=== PATIENT | female | born 1980 | race Caucasian/White ===

== ENCOUNTER 2019-04-06 14:14 | Emergency (ER) | payer MEDICAID ==
[~2019-04-06] VITALS: Ht 177 cm; Wt 121.0 kg
[2019-04-06] MEDS ORDERED: NS IV 1000 ML 1,000 ML IV SCH (15:00)
[2019-04-06 15:01] LABS: BASOPHILS % (AUTO) 0 % (0-10); EOSINOPHILS % (AUTO) 0 % (0-10); HEMATOCRIT 45 % (35-52); HEMOGLOBIN 15.1 G/DL (11.5-16.0); LYMPHOCYTES # (AUTO) 1.8 X 10^3 (1.0-4.0); LYMPHOCYTES % (AUTO) 18 % (12-44); MEAN CORPUSCULAR HEMOGLOBIN 29 PG (25-34); MEAN CORPUSCULAR HGB CONC 33 G/DL (32-36); MEAN CORPUSCULAR VOLUME 85 FL (80-99); MEAN PLATELET VOLUME 10.6 FL (7.4-10.4); MONOCYTES # (AUTO) 0.6 X 10^3 (0.0-1.0); MONOCYTES % (AUTO) 6 % (0-12); NEUTROPHILS # (AUTO) 7.7 X 10^3 (1.8-7.8); NEUTROPHILS % (AUTO) 76 % (42-75); PLATELET COUNT 304 10^3/uL (130-400); RED CELL DISTRIBUTION WIDTH 14.3 % (10.0-14.5); WHITE BLOOD COUNT 10.2 10^3/uL (4.3-11.0)
[2019-04-06 15:16] LABS: ALANINE AMINOTRANSFERASE 13 U/L (0-55); ALBUMIN 4.5 GM/DL (3.2-4.5); ALKALINE PHOSPHATASE 78 U/L (40-136); BUN/CREATININE RATIO 12; CALCIUM 9.5 MG/DL (8.5-10.1); CARBON DIOXIDE 19 MMOL/L (21-32); CHLORIDE 106 MMOL/L (98-107); CREATININE SERUM 0.74 MG/DL (0.60-1.30); GFR ESTIMATED > 60; GLUCOSE 94 MG/DL (70-105); POTASSIUM 3.5 MMOL/L (3.6-5.0); SODIUM 139 MMOL/L (135-145); TOTAL PROTEIN 7.9 GM/DL (6.4-8.2)
--- NOTE | 2019-04-06 15:33 | ED GU-Female ---
General Chief Complaint: ALUMINIZER Stated Complaint: VOMITTING, APPROX 11 WEEKS Nursing Triage Note: PT STATES HAS BEEN VOMITING FOR APPROX 3 WEEKS AND IS 11WEEKS G-10 P-9 AB-0 Nursing Sepsis Screen: No Definite Risk Source: patient Exam Limitations: no limitations History of Present Illness Date Seen by Provider: Apr 06, 2019 Time Seen by Provider: 15:32 Initial Comments To ER with reports of a nausea and vomiting for about 3 weeks pretty persistently. She is 11 weeks G 10 P 90 B0. History of nausea and vomiting with previous pregnancies. Not currently on any medications for it. At the very moment she is not nauseated. She denies any lower abdominal pain cramping or vaginal bleeding. Timing/Duration: just prior to arrival Severity/Quality: moderate Radiation: none Activities at Onset: none Prior Genitourinary Problems: none Associated Symptoms: nausea/vomiting Allergies and Home Medications Allergies Coded Allergies: No Known Drug Allergies (Unverified , 04/03/16) Home Medications No Active Prescriptions or Reported Meds Patient Home Medication List Home Medication List Reviewed: Yes Review of Systems Review of Systems Constitutional: see HPI EENTM: see HPI Respiratory: no symptoms reported Cardiovascular: no symptoms reported Gastrointestinal: nausea Genitourinary: no symptoms reported Expected Date of Delivery: October 30, 2019 Musculoskeletal: no symptoms reported Skin: no symptoms reported Psychiatric/Neurological: No Symptoms Reported Endocrine: No Symptoms Reported Hematologic/Lymphatic: No Symptoms Reported Past Otndtjt-Futyvy-Rbihjj Hx Patient Social History Recent Foreign Travel: No Contact w/Someone Who Travel: No Recent Infectious Disease Expo: No Recent Hopitalizations: No Physical Abuse: No Sexual Abuse: No Mistreated: No Fear: No Immunizations Up To Date Tetanus Booster (TDap): Less than 5yrs Seasonal Allergies Seasonal Allergies: No Past Medical History Surgeries: No Respiratory: No Cardiac: No Neurological: No : Yes Expected Date of Delivery: October 30, 2019 Hx : 10 Hx Para: 9 Hx Total # of Abortions (Sp): 0 Reproductive Disorders: No Sexually Transmitted Disease: No HIV/AIDS: No Gastrointestinal: No Musculoskeletal: No Endocrine: No Cancer: No Psychosocial: No Integumentary: No Blood Disorders: No Adverse Reaction/Blood Tranf: No Physical Exam Vital Signs Vital Signs - First Documented 04/06/19 14:20 Temp 36.8 Pulse 106 Resp 18 B/P (MAP) 120/85 (97) Pulse Ox 99 Capillary Refill : Less Than 3 Seconds Height, Weight, BMI Height: 5'10" Weight: 205lbs. oz. 92.012756im; 38.00 BMI Method:Stated General Appearance: WD/WN, no apparent distress HEENT: PERRL/EOMI, normal ENT inspection Neck: non-tender, full range of motion Respiratory: no respiratory distress, no accessory muscle use Gastrointestinal: normal bowel sounds, non tender, soft Extremities: normal range of motion, non-tender Neurologic/Psychiatric: alert, normal mood/affect, oriented x 3 Skin: normal color, warm/dry Progress/Results/Core Measures Suspected Sepsis Recent Fever Within 48 Hours: No Infection Criteria Present: None New/Unexplained Altered Menta: No Sepsis Screen: No Definite Risk SIRS Temperature: Pulse: 106 Respiratory Rate: 18 Laboratory Tests 04/06/19 14:53: White Blood Count 10.2 Blood Pressure 120 /85 Mean: 97 Laboratory Tests 04/06/19 14:53: Creatinine 0.74, Platelet Count 304, Total Bilirubin 1.0 Results/Orders Lab Results Laboratory Tests Test 04/06/19 14:53 04/06/19 14:54 Range/Units White Blood Count 10.2 4.3-11.0 10^3/uL Red Blood Count 5.29 4.35-5.85 10^6/uL Hemoglobin 15.1 11.5-16.0 G/DL Hematocrit 45 35-52 % Mean Corpuscular Volume 85 80-99 FL Mean Corpuscular Hemoglobin 29 25-34 PG Mean Corpuscular Hemoglobin Concent 33 32-36 G/DL Red Cell Distribution Width 14.3 10.0-14.5 % Platelet Count 304 130-400 10^3/uL Mean Platelet Volume 10.6 H 7.4-10.4 FL Neutrophils (%) (Auto) 76 H 42-75 % Lymphocytes (%) (Auto) 18 12-44 % Monocytes (%) (Auto) 6 0-12 % Eosinophils (%) (Auto) 0 0-10 % Basophils (%) (Auto) 0 0-10 % Neutrophils # (Auto) 7.7 1.8-7.8 X 10^3 Lymphocytes # (Auto) 1.8 1.0-4.0 X 10^3 Monocytes # (Auto) 0.6 0.0-1.0 X 10^3 Eosinophils # (Auto) 0.0 0.0-0.3 10^3/uL Basophils # (Auto) 0.0 0.0-0.1 10^3/uL Sodium Level 139 135-145 MMOL/L Potassium Level 3.5 L 3.6-5.0 MMOL/L Chloride Level 106 98-107 MMOL/L Carbon Dioxide Level 19 L 21-32 MMOL/L Anion Gap 14 5-14 MMOL/L Blood Urea Nitrogen 9 7-18 MG/DL Creatinine 0.74 0.60-1.30 MG/DL Estimat Glomerular Filtration Rate > 60 BUN/Creatinine Ratio 12 Glucose Level 94 70-105 MG/DL Calcium Level 9.5 8.5-10.1 MG/DL Corrected Calcium 9.1 8.5-10.1 MG/DL Total Bilirubin 1.0 0.1-1.0 MG/DL Aspartate Amino Transf (AST/SGOT) 13 5-34 U/L Alanine Aminotransferase (ALT/SGPT) 13 0-55 U/L Alkaline Phosphatase 78 40-136 U/L Total Protein 7.9 6.4-8.2 GM/DL Albumin 4.5 3.2-4.5 GM/DL Human Chorionic Gonadotropin, Quant 29834 H <5 MIU/ML Urine Color MICHAEL H Urine Clarity VERY CLOUDY H Urine pH 6 5-9 Urine Specific [place] 1.025 H 1.016-1.022 Urine Protein 2+ H NEGATIVE Urine Glucose (UA) NEGATIVE NEGATIVE Urine Ketones 4+ H NEGATIVE Urine Nitrite NEGATIVE NEGATIVE Urine Bilirubin 1+ H NEGATIVE Urine Urobilinogen 8 H NORMAL MG/DL Urine Leukocyte Esterase 1+ H NEGATIVE Urine RBC (Auto) 3+ H NEGATIVE Urine RBC 2-5 H /HPF Urine WBC RARE /HPF Urine Squamous Epithelial Cells 10-25 H /HPF Urine Crystals NONE /LPF Urine Bacteria LARGE H /HPF Urine Casts NONE /LPF Urine Mucus LARGE H /LPF Urine Culture Indicated NO My Orders Orders - GREG CANDELARIO APRN Cbc With Automated Diff (04/06/19 14:56) Comprehensive Metabolic Panel (04/06/19 14:56) Hcg,Quantitative (04/06/19 14:56) Ed Iv/Invasive Line Start (04/06/19 14:56) Ns Iv 1000 Ml (Sodium Chloride 0.9%) (04/06/19 15:00) Ua Culture If Indicated (04/06/19 15:29) Magnesium (04/06/19 15:29) Vital Signs/I&O 04/06/19 14:20 Temp 36.8 Pulse 106 Resp 18 B/P (MAP) 120/85 (97) Pulse Ox 99 Capillary Refill : Less Than 3 Seconds Blood Pressure Mean: 97 POS Departure Impression Primary Impression: Nausea and vomiting during Disposition: HOME, SELF-CARE Condition: Stable Departure-Patient Inst. Decision time for Depature: 15:58 Referrals: NO,LOCAL PHYSICIAN (PCP/Family) Primary Care Physician Add. Discharge Instructions: 1. Antibiotics as directed for the bacteria in your urine during 2. Nausea medication as directed 3. You can use 10 mg of doxylamine and 10 mg of thyroid on scene (B-6 vitamin) purchased [id number]-[id number] taken together at bedtime. All discharge instructions reviewed with patient and/or family. Voiced understanding. Scripts Cephalexin (Cephalexin) 500 Mg Tablet 500 MG PO TID, #15 TAB 0 Refills Prov: GREG CANDELARIO APRN 04/06/19 Promethazine HCl (Promethazine Tablet) 25 Mg Tablet 25 MG PO Q8H PRN for NAUSEA/VOMITING, #14 TAB 0 Refills Prov: GREG CANDELARIO APRN 04/06/19 GREG CANDELARIO APRN Apr 06, 2019 15:33 POS
[2019-04-06 15:35] LABS: CLARITY,URINE VERY CLOUDY; COLOR,URINE AMBER; GLUCOSE, URINE (UA) NEGATIVE (NEGATIVE); KETONES,URINE 4+ (NEGATIVE); LEUKOCYTE ESTERASE ,URINE 1+ (NEGATIVE); NITRITE,URINE NEGATIVE (NEGATIVE); PH,URINE 6 (5-9); PROTEIN,URINE 2+ (NEGATIVE)
[2019-04-06 15:45] LABS: BACTERIA,URINE LARGE /HPF; BILIRUBIN,URINE 1+ (NEGATIVE); WBC,URINE RARE /HPF
[2019-04-06] MEDS ORDERED: CEPH500T PO (16:00)
[2019-04-06] MEDS ORDERED: PROM25TA14 PO (16:00)
[2019-04-06 16:19] VITALS: BP 123/84
== END 2019-04-06 16:19 | disposition home or self-care (01) ==
LOC: EDUNIT# 14:14 → ER 14:17
DX: O21.0 Mild hyperemesis gravidarum (principal); Z3A.11 11 weeks gestation of pregnancy
CPT/HCPCS: 36415; 80053; 81000; 83735; 84702; 85025

== ENCOUNTER → 2019-06-20 | Outpatient (CLI) | payer MEDICAID ==
[~2019-06-20] MED LIST: CEPH500T PO; PROM25TA14 PO
--- NOTE | 2019-06-20 12:07 | Diagnostic Imaging Report ---
INDICATION: survey. TECHNIQUE: Multiple real-time grayscale images were obtained over the gravid uterus. COMPARISON: None FINDINGS: There is a single live fetus in a cephalic presentation. heart rate was recorded at 146 bpm. The placenta is anterior. Amniotic fluid index is 15 cm. Cervical length is 6.5 cm. kidneys, bladder and stomach are unremarkable. brain is unremarkable. There is a four-chamber heart. There is a three-vessel cord with normal insertion. The spine is unremarkable. Biometrical measurements are as follows: Biparietal 5.19 cm, age 21 weeks 6 days. Head circumference 19.34 cm, age 21 weeks 5 days. Abdominal circumference 17.34 cm, age 22 weeks 22 days. Femur length 4.03 cm, age 23 weeks 1 days. Sonographic estimate age: 22 weeks 2 days. Sonographic estimated date of delivery: 10/22/2019. Estimated Weight: 507 gm (+/- 74 gm). LMP percentile: 97%. heart rate: 146 beats per minute. number: 1 of 1. IMPRESSION: Single live IUP 22 weeks 2 days gestational age. The estimated date of confinement sonographically is 10/22/2019. No complicating features are detected. Dictated by: Dictated on workstation # [id number]
== END ==
LOC: RAD 10:05
PROVIDERS: ATTEND Student in an Organized Health Care Education/Training Program
DX: O09.522 Supervision of elderly multigravida, second trimester (principal); Z3A.22 22 weeks gestation of pregnancy
CPT/HCPCS: 76805

== ENCOUNTER 2020-11-03 16:22 | Observation (INO) | payer MEDICAID ==
[~2020-11-03] VITALS: Ht 177.8 cm; Wt 139.0 kg
[2020-11-03] VITALS (9 sets, daily range): BP systolic 117–128; BP diastolic 60–84
--- NOTE | 2020-11-03 16:28 | ED Abdominal Pain ---
General Chief Complaint: Abdominal/GI Problems Stated Complaint: ABD PAIN; VOMITING History of Present Illness Date Seen by Provider: Nov 03, 2020 Time Seen by Provider: 16:30 Initial Comments 39-year-old female presents presents with right lower quadrant abdominal pain. Patient reports that this morning she woke up and just "felt sick" that she had a normal bowel movement. And took some milk of magnesia thinking it would help and that she may be constipated. Reports that now she has pain in her right lower quadrant. She had one episode of vomiting about 4 and half hours ago. Patient denies any urinary symptoms. She denies any back pain she does not have any fevers chills cough or other systemic complaints. Allergies and Home Medications Allergies Coded Allergies: No Known Drug Allergies (Unverified , 04/03/16) Home Medications Cephalexin 500 Mg Tablet, 500 MG PO TID Prescribed by: GREG CANDELARIO on 04/06/19 1600 Promethazine HCl 25 Mg Tablet, 25 MG PO Q8H PRN for NAUSEA/VOMITING Prescribed by: GREG CANDELARIO on 04/06/19 1600 Patient Home Medication List Home Medication List Reviewed: Yes Review of Systems Review of Systems Constitutional: No chills, No fever Respiratory: Denies Cough, Denies Shortness of Air Cardiovascular: Denies Chest Pain, Denies Irregular Heart Rate, Denies Lightheadedness Gastrointestinal: Abdominal Pain; Denies Constipated, Denies Diarrhea; Nausea, Vomiting Genitourinary: No Symptoms Reported Musculoskeletal: no symptoms reported Skin: no symptoms reported Psychiatric/Neurological: No Symptoms Reported Endocrine: No Symptoms Reported Past Jeohmve-Qzmqap-Nawopg Hx Past Med/Social Hx: Reviewed Nursing Past Med/Soc Hx Patient Social History Recent Hopitalizations: No Immunizations Up To Date Tetanus Booster (TDap): Less than 5yrs Seasonal Allergies Seasonal Allergies: No Past Medical History Surgeries: No Respiratory: No Cardiac: No Neurological: No Reproductive Disorders: No Sexually Transmitted Disease: No HIV/AIDS: No Gastrointestinal: No Musculoskeletal: No Endocrine: No Cancer: No Psychosocial: No Integumentary: No Blood Disorders: No Adverse Reaction/Blood Tranf: No Physical Exam Vital Signs Vital Signs - First Documented 11/03/20 16:24 Temp 36.6 Pulse 96 Resp 16 B/P (MAP) 156/92 (113) Pulse Ox 97 O2 Delivery Room Air Capillary Refill : Height/Weight/BMI Height: 5'10" Weight: 205lbs. oz. 92.269999pk; 38.00 BMI Method:Stated General Appearance: mild distress, obese Neck: full range of motion, supple Cardiovascular: normal peripheral pulses, regular rate, rhythm Gastrointestinal: soft, guarding, rebound, tenderness (Right sided mainly right lower) Extremities: non-tender Back: no CVA tenderness Neurologic/Psychiatric: alert, normal mood/affect, oriented x 3 Skin: normal color, warm/dry Progress/Results/Core Measures Results/Orders Lab Results Laboratory Tests Test 11/03/20 16:30 11/03/20 16:35 Range/Units Urine Color YELLOW Urine Clarity CLEAR Urine pH 8.5 5-9 Urine Specific [place] 1.015 L 1.016-1.022 Urine Protein 1+ H NEGATIVE Urine Glucose (UA) NEGATIVE NEGATIVE Urine Ketones 3+ H NEGATIVE Urine Nitrite NEGATIVE NEGATIVE Urine Bilirubin NEGATIVE NEGATIVE Urine Urobilinogen 0.2 < = 1.0 MG/DL Urine Leukocyte Esterase NEGATIVE NEGATIVE Urine RBC (Auto) TRACE H NEGATIVE Urine RBC 2-5 H /HPF Urine WBC RARE /HPF Urine Squamous Epithelial Cells 2-5 /HPF Urine Crystals NONE /LPF Urine Bacteria NEGATIVE /HPF Urine Casts NONE /LPF Urine Mucus SMALL H /LPF Urine Culture Indicated NO Urine Test NEGATIVE NEGATIVE White Blood Count 21.0 H 4.3-11.0 10^3/uL Red Blood Count 5.17 4.35-5.85 10^6/uL Hemoglobin 14.0 11.5-16.0 G/DL Hematocrit 43 35-52 % Mean Corpuscular Volume 83 80-99 FL Mean Corpuscular Hemoglobin 27 25-34 PG Mean Corpuscular Hemoglobin Concent 33 32-36 G/DL Red Cell Distribution Width 15.9 H 10.0-14.5 % Platelet Count 366 130-400 10^3/uL Mean Platelet Volume 10.1 7.4-10.4 FL Immature Granulocyte % (Auto) 1 % Neutrophils (%) (Auto) 89 H 42-75 % Lymphocytes (%) (Auto) 7 L 12-44 % Monocytes (%) (Auto) 4 0-12 % Eosinophils (%) (Auto) 0 0-10 % Basophils (%) (Auto) 0 0-10 % Neutrophils # (Auto) 18.7 H 1.8-7.8 X 10^3 Lymphocytes # (Auto) 1.4 1.0-4.0 X 10^3 Monocytes # (Auto) 0.8 0.0-1.0 X 10^3 Eosinophils # (Auto) 0.0 0.0-0.3 10^3/uL Basophils # (Auto) 0.1 0.0-0.1 10^3/uL Immature Granulocyte # (Auto) 0.1 0.0-0.1 10^3/uL Neutrophils % (Manual) 89 % Lymphocytes % (Manual) 2 % Monocytes % (Manual) 4 % Eosinophils % (Manual) 0 % Basophils % (Manual) 0 % Band Neutrophils 5 % Sodium Level 138 135-145 MMOL/L Potassium Level 3.7 3.6-5.0 MMOL/L Chloride Level 102 98-107 MMOL/L Carbon Dioxide Level 24 21-32 MMOL/L Anion Gap 12 5-14 MMOL/L Blood Urea Nitrogen 10 7-18 MG/DL Creatinine 0.60 0.60-1.30 MG/DL Estimat Glomerular Filtration Rate > 60 BUN/Creatinine Ratio 17 Glucose Level 118 H 70-105 MG/DL Calcium Level 9.0 8.5-10.1 MG/DL Corrected Calcium 8.7 8.5-10.1 MG/DL Total Bilirubin 0.9 0.1-1.0 MG/DL Aspartate Amino Transf (AST/SGOT) 14 5-34 U/L Alanine Aminotransferase (ALT/SGPT) 12 0-55 U/L Alkaline Phosphatase 114 40-136 U/L C-Reactive Protein 0.82 H <0.50 MG/DL Total Protein 7.6 6.4-8.2 GM/DL Albumin 4.4 3.2-4.5 GM/DL Lipase 16 8-78 U/L My Orders Orders - SANATMARIA,SHWETA L DO Cbc With Automated Diff (11/03/20 16:38) Comprehensive Metabolic Panel (11/03/20 16:38) Hcg,Qualitative Urine (11/03/20 16:38) Lipase (11/03/20 16:38) Ua Culture If Indicated (11/03/20 16:38) Crp Fs (11/03/20 16:38) Abdomen Flat & Upright/Decub (11/03/20 16:38) Ondansetron Injection (Zofran Injectio (11/03/20 16:45) Ns Iv 1000 Ml (Sodium Chloride 0.9%) (11/03/20 16:38) Ketorolac Injection (Toradol Injection) (11/03/20 16:42) Manual Differential (11/03/20 16:35) Ct Abd/Pelv W (Appendicitis) (11/03/20 17:16) Iohexol Injection (Omnipaque 350 Mg/Ml 1 (11/03/20 17:30) Received Contrast (Hold Metformin- Contr (11/03/20 17:30) Sodium Chloride Flush (Catheter Flush Sy (11/03/20 17:30) Ns (Ivpb) (Sodium Chloride 0.9% Ivpb Bag (11/03/20 17:30) Medications Given in ED Current Medications Medications Dose Ordered Sig/Thien Route Start Time Stop Time Status Last Admin Dose Admin Iohexol 100 ml ONCE ONCE IV 11/03/20 17:30 11/03/20 17:31 DC 11/03/20 17:30 100 ML Ondansetron HCl 4 mg ONCE ONCE IVP 11/03/20 16:45 11/03/20 16:46 DC 11/03/20 16:47 4 MG Sodium Chloride 10 ml NEEDED PRN IV 11/03/20 17:30 11/03/20 17:30 10 ML Sodium Chloride 100 ml ONCE ONCE IV 11/03/20 17:30 11/03/20 17:31 DC 11/03/20 17:30 80 ML Vital Signs/I&O 11/03/20 16:24 Temp 36.6 Pulse 96 Resp 16 B/P (MAP) 156/92 (113) Pulse Ox 97 O2 Delivery Room Air Progress Progress Note : Progress Note Patient with acute appendicitis. Discussed with Dr. Luis who accepted patient. Patient will be admitted to a [facility] surgical bed for further management by Dr. Luis. Patient was transferred by private vehicle in stable condition. I did discuss with her the need to eat or drink and to go directly to [facility]. She voiced understanding upon transfer. Diagnostic Imaging Diagonstic Imaging: Xray Plain Films/CT/US/NM/MRI: abdomen Comments ABDOMEN FLAT & UPRIGHT/DECUB INDICATION: Abdominal pain COMPARISON: None available TECHNIQUE: 3 radiographs of the abdomen dated 11/03/2020 FINDINGS: Minimally visualized lung bases are clear of focal pulmonary consolidation. Gas and stool is noted throughout the colon. No dilated loops of small bowel. No differential air-fluid levels. No free air. No suspicious calcifications overlying the renal shadows. No acute osseous abnormality. IMPRESSION: No acute abnormality. Diagonstic Imaging: CT Plain Films/CT/US/NM/MRI: abdomen Comments CT ABD/PELV W (APPENDICITIS) PROCEDURE: CT abdomen and pelvis with contrast, rule out appendicitis. TECHNIQUE: Multiple contiguous axial images were obtained through the abdomen and pelvis after the administration of intravenous contrast. All CT scans use one or more of the following dose optimizing techniques: automated exposure control, MA and/or KvP adjustment based on patient size and exam type or iterative reconstruction. INDICATION: Right lower quadrant pain. COMPARISON: No priors. FINDINGS: Noncontrasted abdominopelvic CT performed with multiplanar reconstructions. The appendix is mildly distended measuring 9.7 mm outer whox-az-cbhyu wall diameter. There is some mild mucosal hyperenhancement of the appendix and slight infiltration and stranding of the periappendiceal fat. There is no appendicolith, however the findings are suspicious for subtle early changes of uncomplicated appendicitis. The appendix arises off the medial aspect of the caudal pole of the cecum and is distally directed inferiorly. There is a left adnexal unilocular cyst in the ovary showing no complexity, measuring 5.5 cm in diameter. There is no hydroureteronephrosis. Liver, gallbladder, bile ducts, spleen, adrenals, and pancreas are negative. The aorta is nonaneurysmal. There is no ileus or bowel obstruction. Uterus and urinary bladder are unremarkable. IMPRESSION: 1. Findings are most suggestive of subtle changes of early acute appendicitis without complicating feature. 2. Left adnexal simple-appearing ovarian cyst. 3. No other significant finding. Reviewed: Reviewed by Me, Reviewed/Discussed Departure Impression Primary Impression: Appendicitis Qualified Codes: K35.30 - Acute appendicitis with localized peritonitis, without perforation or gangrene Disposition: 30 STILL A PATIENT Condition: Stable Admissions Decision to Admit Reason: Admit from ER (General) Decision to Admit/Date: Nov 03, 2020 Time/Decision to Admit Time: 18:00 Departure-Patient Inst. Referrals: SHAWNA CORADO MD (PCP/Family) Primary Care Physician SHWETA SANTAMARIA DO Nov 03, 2020 16:27
[2020-11-03] MEDS ORDERED: NS IV 1000 ML 1,000 ML IV STA (16:38)
[2020-11-03] MEDS ORDERED: KETOROLAC 30 MG/ML VIAL IVP STA (16:42)
[2020-11-03] MEDS ORDERED: ONDANSETRON 4 MG/2 ML (SDV) Z0FRAN IVP ONE (16:45)
[2020-11-03 16:50] LABS: MEAN CORPUSCULAR HEMOGLOBIN 27 PG (25-34)
[2020-11-03 16:51] LABS: BASOPHILS # (AUTO) 0.1 10^3/uL (0.0-0.1); BASOPHILS % (AUTO) 0 % (0-10); EOSINOPHILS % (AUTO) 0 % (0-10); HEMATOCRIT 43 % (35-52); LYMPHOCYTES # (AUTO) 1.4 X 10^3 (1.0-4.0); LYMPHOCYTES % (AUTO) 7 % (12-44); MEAN CORPUSCULAR HGB CONC 33 G/DL (32-36); MEAN CORPUSCULAR VOLUME 83 FL (80-99); MEAN PLATELET VOLUME 10.1 FL (7.4-10.4); MONOCYTES # (AUTO) 0.8 X 10^3 (0.0-1.0); MONOCYTES % (AUTO) 4 % (0-12); NEUTROPHILS # (AUTO) 18.7 X 10^3 (1.8-7.8); NEUTROPHILS % (AUTO) 89 % (42-75); PLATELET COUNT 366 10^3/uL (130-400)
--- NOTE | 2020-11-03 16:56 | Diagnostic Imaging Report ---
INDICATION: Abdominal pain COMPARISON: None available TECHNIQUE: 3 radiographs of the abdomen dated 11/03/2020 FINDINGS: Minimally visualized lung bases are clear of focal pulmonary consolidation. Gas and stool is noted throughout the colon. No dilated loops of small bowel. No differential air-fluid levels. No free air. No suspicious calcifications overlying the renal shadows. No acute osseous abnormality. IMPRESSION: No acute abnormality. Dictated by: Dictated on workstation # [id number]
[2020-11-03 17:05] LABS: BILIRUBIN,URINE NEGATIVE (NEGATIVE); CLARITY,URINE CLEAR; COLOR,URINE YELLOW; GLUCOSE, URINE (UA) NEGATIVE (NEGATIVE); KETONES,URINE 3+ (NEGATIVE); NITRITE,URINE NEGATIVE (NEGATIVE); PH,URINE 8.5 (5-9); PROTEIN,URINE 1+ (NEGATIVE)
[2020-11-03 17:06] LABS: BACTERIA,URINE NEGATIVE /HPF; LEUKOCYTE ESTERASE ,URINE NEGATIVE (NEGATIVE); WBC,URINE RARE /HPF
[2020-11-03 17:11] LABS: BUN/CREATININE RATIO 17; CARBON DIOXIDE 24 MMOL/L (21-32); CHLORIDE 102 MMOL/L (98-107); GFR ESTIMATED > 60; POTASSIUM 3.7 MMOL/L (3.6-5.0); SODIUM 138 MMOL/L (135-145)
[2020-11-03 17:12] LABS: ALANINE AMINOTRANSFERASE 12 U/L (0-55); ALBUMIN 4.4 GM/DL (3.2-4.5); ALKALINE PHOSPHATASE 114 U/L (40-136); BILIRUBIN,TOTAL 0.9 MG/DL (0.1-1.0); GLUCOSE 118 MG/DL (70-105); LIPASE 16 U/L (8-78); TOTAL PROTEIN 7.6 GM/DL (6.4-8.2)
[2020-11-03 17:27] LABS: BAND NEUTROPHILS 5 %; BASOPHILS % (MANUAL) 0 %; EOSINOPHILS % (MANUAL) 0 %; LYMPHOCYTES % (MANUAL) 2 %; MONOCYTES % (MANUAL) 4 %; NEUTROPHILS % (MANUAL) 89 %
[2020-11-03] MEDS ORDERED: IOHEXOL 350 MG/ML 100 ML (OMNIPAQUE 350) VIAL IV ONE (17:30)
[2020-11-03] MEDS ORDERED: CATHETER FLUSH 10 ML SYR IV PRN ×2 (17:30→20:00)
[2020-11-03] MEDS ORDERED: HOLD METFORMIN - RECEIVED CONTRAST 20 ML VIAL IV SCH (17:30)
[2020-11-03] MEDS ORDERED: NS 100 ML (IVPB) BAG IV ONE (17:30)
--- NOTE | 2020-11-03 17:55 | Diagnostic Imaging Report ---
PROCEDURE: CT abdomen and pelvis with contrast, rule out appendicitis. TECHNIQUE: Multiple contiguous axial images were obtained through the abdomen and pelvis after the administration of intravenous contrast. All CT scans use one or more of the following dose optimizing techniques: automated exposure control, MA and/or KvP adjustment based on patient size and exam type or iterative reconstruction. INDICATION: Right lower quadrant pain. COMPARISON: No priors. FINDINGS: Noncontrasted abdominopelvic CT performed with multiplanar reconstructions. The appendix is mildly distended measuring 9.7 mm outer tbcp-xu-ncjfl wall diameter. There is some mild mucosal hyperenhancement of the appendix and slight infiltration and stranding of the periappendiceal fat. There is no appendicolith, however the findings are suspicious for subtle early changes of uncomplicated appendicitis. The appendix arises off the medial aspect of the caudal pole of the cecum and is distally directed inferiorly. There is a left adnexal unilocular cyst in the ovary showing no complexity, measuring 5.5 cm in diameter. There is no hydroureteronephrosis. Liver, gallbladder, bile ducts, spleen, adrenals, and pancreas are negative. The aorta is nonaneurysmal. There is no ileus or bowel obstruction. Uterus and urinary bladder are unremarkable. IMPRESSION: 1. Findings are most suggestive of subtle changes of early acute appendicitis without complicating feature. 2. Left adnexal simple-appearing ovarian cyst. 3. No other significant finding. Dictated by: Dictated on workstation # [id number]
[2020-11-03] MEDS ORDERED: LIDOCAINE/EPI 1%-1:100,000 (XYLOCAINE) 20ML ONE (19:41)
[2020-11-03] MEDS ORDERED: ROCURONIUM 10 MG/ML 5 ML SYRINGE IV ONE (19:42)
[2020-11-03] MEDS ORDERED: SEVOFLURANE (ULTANE) 15 ML INHAL SOLN ONE (19:42)
[2020-11-03] MEDS ORDERED: fentaNYL INJ 100 MCG/2 ML AMP ONE (19:42)
[2020-11-03] MEDS ORDERED: proPOfol 200 MG/20 ML (DIPRIVAN) VIAL IV ONE (19:42)
[2020-11-03] MEDS ORDERED: MIDAZOLAM 2 MG/2 ML (VERSED) VIAL ONE (19:42)
[2020-11-03] MEDS ORDERED: ONDANSETRON 4 MG/2 ML (SDV) Z0FRAN ONE (19:42)
--- NOTE | 2020-11-03 19:58 | Consultation - Surgery ---
History of Present Illness History of Present Illness Patient Consulted On(romana/time) 11/03/20 19:51 Time Seen by Provider: 19:39 History of Present Illness Surgery asked to consult regarding RLQ pain, appendicitis. HPI per ED: 39-year-old female presents presents with right lower quadrant abdominal pain. Patient reports that this morning she woke up and just "felt sick" that she had a normal bowel movement. And took some milk of magnesia thinking it would help and that she may be constipated. Reports that now she has pain in her right lower quadrant. She had one episode of vomiting about 4 and half hours ago. Patient denies any urinary symptoms. She denies any back pain she does not have any fevers chills cough or other systemic complaints. When I spoke to pt this evening she stated the pain started this am and she thought it was constipation. Pain got worse around noon and at that time while she was pushing around, realized it was more in RLQ. She has never had pain like this before. Describes pain as 5 out of 10; constant achey pain. Allergies and Home Medications Allergies Coded Allergies: No Known Drug Allergies (Unverified , 04/03/16) Home Medications Cephalexin 500 Mg Tablet, 500 MG PO TID Prescribed by: GREG CANDELARIO on 04/06/19 1600 Promethazine HCl 25 Mg Tablet, 25 MG PO Q8H PRN for NAUSEA/VOMITING Prescribed by: GREG CANDELARIO on 04/06/19 1600 Patient Home Medication List Home Medication List Reviewed: Yes Past Tlzqfuf-Vylsss-Xqqfpt Hx Patient Social History Smoking Status: Never a Smoker 2nd Hand Smoke Exposure: No Recent Hopitalizations: No Immunizations Up To Date Tetanus Booster (TDap): Less than 5yrs Seasonal Allergies Seasonal Allergies: No Surgeries History of Surgeries: No Respiratory History of Respiratory Disorde: No Cardiovascular History of Cardiac Disorders: No Neurological History of Neurological Disord: No Reproductive System Hx Reproductive Disorders: No Sexually Transmitted Disease: No HIV/AIDS: No Genitourinary History of Genitourinary Disor: No Gastrointestinal History of Gastrointestinal Di: No Musculoskeletal History of Musculoskeletal Dis: No Endocrine History of Endocrine Disorders: No HEENT History of HEENT Disorders: No Cancer History of Cancer: No Psychosocial History of Psychiatric Problem: No Integumentary History of Skin or Integumenta: No Blood Transfusions History of Blood Disorders: No Adverse Reaction to a Blood Tr: No Family Medical History Significant Family History: Cancer (Grandfather had lung CA, Grandmother had Liver CA), Diabetes (Son has Type I) Review of Systems-General Constitutional: malaise, weakness EENTM: No blurred vision, No double vision, No mouth swelling, No epistaxis Respiratory: No hemoptysis, No phlegm, No short of breath Cardiovascular: No chest pain, No edema, No palpitations Gastrointestinal: RLQ, constipation; No dysphagia; loss of appetite; No nausea, No vomiting Genitourinary: No dysuria, No frequency, No hematuria Musculoskeletal: No joint pain, No joint swelling, No muscle stiffness Skin: No change in color, No change in hair/nails Psychiatric/Neurological: Denies Anxiety, Denies Depressed, Denies Seizure, Denies Tremors Other Pt denies any hx of abnormal bleeding or bruising Physical Exam-General Problems Physical Exam Vital Signs Vital Signs - First Documented 11/03/20 16:24 Temp 36.6 Pulse 96 Resp 16 B/P (MAP) 156/92 (113) Pulse Ox 97 O2 Delivery Room Air Capillary Refill : Less Than 3 Seconds General Appearance: WD/WN, no apparent distress Eyes: Bilateral Eye PERRL, Bilateral Eye EOMI HEENT: pharynx normal; No scleral icterus (R), No scleral icterus (L) Neck: full range of motion, normal inspection Respiratory: chest non-tender, lungs clear, normal breath sounds, no respiratory distress, no accessory muscle use Cardiovascular: regular rate, rhythm, no murmur Gastrointestinal: soft, no organomegaly, no pulsatile mass, tenderness, hernia (umbilical) Back: no CVA tenderness, no vertebral tenderness Extremities: normal inspection, no pedal edema, no calf tenderness 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, no motor/sensory deficits, alert, normal mood/affect, oriented x 3 Skin: normal color, warm/dry Lymphatic: no adenopathy (neck, axilla or groin) Data Review Labs Laboratory Tests 11/03/20 16:30: Urine Color YELLOW, Urine Clarity CLEAR, Urine pH 8.5, Urine Specific [place] 1.015L, Urine Protein 1+H, Urine Glucose (UA) NEGATIVE, Urine Ketones 3+H, Urine Nitrite NEGATIVE, Urine Bilirubin NEGATIVE, Urine Urobilinogen 0.2, Urine Leukocyte Esterase NEGATIVE, Urine RBC (Auto) TRACEH, Urine RBC 2-5H, Urine WBC RARE, Urine Squamous Epithelial Cells 2-5, Urine Crystals NONE, Urine Bacteria NEGATIVE, Urine Casts NONE, Urine Mucus SMALLH, Urine Culture Indicated NO, Urine Test NEGATIVE 11/03/20 16:35: White Blood Count 21.0H, Red Blood Count 5.17, Hemoglobin 14.0, Hematocrit 43, Mean Corpuscular Volume 83, Mean Corpuscular Hemoglobin 27, Mean Corpuscular Hemoglobin Concent 33, Red Cell Distribution Width 15.9H, Platelet Count 366, Mean Platelet Volume 10.1, Immature Granulocyte % (Auto) 1, Neutrophils (%) (Auto) 89H, Lymphocytes (%) (Auto) 7L, Monocytes (%) (Auto) 4, Eosinophils (%) (Auto) 0, Basophils (%) (Auto) 0, Neutrophils # (Auto) 18.7H, Lymphocytes # (Auto) 1.4, Monocytes # (Auto) 0.8, Eosinophils # (Auto) 0.0, Basophils # (Auto) 0.1, Immature Granulocyte # (Auto) 0.1, Neutrophils % (Manual) 89, Lymphocytes % (Manual) 2, Monocytes % (Manual) 4, Eosinophils % (Manual) 0, Basophils % (Manual) 0, Band Neutrophils 5, Sodium Level 138, Potassium Level 3.7, Chloride Level 102, Carbon Dioxide Level 24, Anion Gap 12, Blood Urea Nitrogen 10, Creatinine 0.60, Estimat Glomerular Filtration Rate > 60, BUN/Creatinine Ratio 17, Glucose Level 118H, Calcium Level 9.0, Corrected Calcium 8.7, Total Bilirubin 0.9, Aspartate Amino Transf (AST/SGOT) 14, Alanine Aminotransferase (ALT/SGPT) 12, Alkaline Phosphatase 114, C-Reactive Protein 0.82H, Total Protein 7.6, Albumin 4.4, Lipase 16 Radiology Date of Exam:11/03/20 CT ABD/PELV W (APPENDICITIS) PROCEDURE: CT abdomen and pelvis with contrast, rule out appendicitis. TECHNIQUE: Multiple contiguous axial images were obtained through the abdomen and pelvis after the administration of intravenous contrast. All CT scans use one or more of the following dose optimizing techniques: automated exposure control, MA and/or KvP adjustment based on patient size and exam type or iterative reconstruction. INDICATION: Right lower quadrant pain. COMPARISON: No priors. FINDINGS: Noncontrasted abdominopelvic CT performed with multiplanar reconstructions. The appendix is mildly distended measuring 9.7 mm outer jlie-yv-knkdr wall diameter. There is some mild mucosal hyperenhancement of the appendix and slight infiltration and stranding of the periappendiceal fat. There is no appendicolith, however the findings are suspicious for subtle early changes of uncomplicated appendicitis. The appendix arises off the medial aspect of the caudal pole of the cecum and is distally directed inferiorly. There is a left adnexal unilocular cyst in the ovary showing no complexity, measuring 5.5 cm in diameter. There is no hydroureteronephrosis. Liver, gallbladder, bile ducts, spleen, adrenals, and pancreas are negative. The aorta is nonaneurysmal. There is no ileus or bowel obstruction. Uterus and urinary bladder are unremarkable. IMPRESSION: 1. Findings are most suggestive of subtle changes of early acute appendicitis without complicating feature. 2. Left adnexal simple-appearing ovarian cyst. 3. No other significant finding. 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 Will get consent for Laparoscopic Appendectomy, possible open. Discussed risks and complications; not limited to pain, bleeding, infection, scar, damage to bowel and need for further procedure. All questions answered to her and her husbands satisfaction. MARIO PENA DO Nov 03, 2020 19:58
[2020-11-03] MEDS ORDERED: LACTATED RINGERS 1,000 ML IV PRN (20:00)
[2020-11-03] MEDS ORDERED: ceFAZolin 2 GM IV Premixed 50 ML IV NR (20:15)
[2020-11-03] MEDS ORDERED: SUCCINYLCHOLINE INJ 100 MG/5 ML SYR/VIAL ONE (20:24)
[2020-11-03] MEDS ORDERED: ceFAZolin INJECTION 2,000 MG ONE (20:24)
[2020-11-03] MEDS ORDERED: HYDROmorphone 2 MG/ML VIAL (DILAUDID) ONE (20:37)
[2020-11-03] MEDS ORDERED: ACHD5005 PO (21:02)
--- NOTE | 2020-11-03 21:02 | Progress Note-Post Operative ---
Post-Operative Progess Note Surgeon (s)/Rabbit Dresser (s) Surgeon MARIO PENA DO Rabbit Dresser: none Pre-Operative Diagnosis Acute Appy Post-Operative Diagnosis same plus Umbilical hernia Bilateral ovarian cysts; L>R Procedure & Operative Findings Date of Procedure 11/03/20 Procedure Performed/Findings PROCEDURE: Laparoscopic appendectomy. COMPLICATIONS: None. INDICATIONS: The patient is a 39 year old female who has been having right lower quadrant abdominal pain. Patient's exam consistent with appendicitis. I discussed risk and benefits of laparoscopic appendectomy and all indicated procedures with the possibility being a normal appendix. The patient understands the risks and benefits and wishes to proceed. Consent was signed on the chart. DESCRIPTION OF PROCEDURE: The patient was taken to the operating suite, prepped and draped in a sterile fashion. Timeout was performed. Local anesthetic was infiltrated just above the umbilicus and 11-blade scalpel was used to make a skin incision. Cautery was used to dissect down to the fascia and scored. Kochers were used to grasp and elevate it and the abdomen was then entered. A 0 Vicryl was placed in a iyrlnb-ih-hispm fashion for closure at the end of the case. The balloon trocar was inserted into the abdomen and pneumoperitoneum was achieved. Under direct visualization of the laparoscope, a 5 mm trocar was placed in the suprapubic region and a 5 mm trocar was placed in the left lower quadrant. Appendix was located, it was inflamed and there was some purulent fluid in the pelvis but it had not ruptured. The base of the appendix was dissected around. Once at the base an Endo-KODI 2.5 stapler was then fired across the base of the appendix. The mesoappendix was then divided with the Ligasure. It was then placed in an Endobag and removed through the 12 mm trocar site. The abdomen was then irrigated and suctioned. Umbilical hernia and bilateral ovarian cysts were noted. Left cyst was at least 6 cm, right was 2-3cm. The abdomen was then desufflated and the trocars were removed. The 0 Vicryl placed at the beginning of the case was then tied closing the 12 mm fascial defect. The skin was then closed using 4-0 Monocryl in a subcuticular fashion. The abdomen was then washed and dried and Skin Affix was placed over the incisions. The patient tolerated the procedure well without any complications and was taken to the recovery room in stable condition. Anesthesia Type GET Estimated Blood Loss Estimated blood loss (mL): scant Specimens/Packing Specimens Removed appendix MARIO PENA DO Nov 03, 2020 21:02
--- NOTE | 2020-11-03 21:03 | Discharge Inst-Surgical ---
Discharge Inst-Surgical Depart Medication/Instructions New, Converted or Re-Newed RX: RX Given to Pt/Family Patient Instructions Follow up Appt: Make appointment for 1 week. [phone] Instructions: No lifting greater than 20 pounds. No strenuous activity. May shower in 24 hours, no tub bath or soaking. Use incentive spirometer at home as directed. No Smoking Skin/Wound Care: May remove bandages in am. You need to leave the Dermabond on incision it will fall off on it's own. Symptoms to Report: Appetite Changes, Extremity Discoloration, Numbness/Tingling, Swelling Increased, Bleeding Excessive, Eyesight Changes, Pain Increased, Urine Color Change, Constipation(Persistent), Fever over 101 degree F, Pain/Pressure in chest, Urinating Difficulty, Cough Up/Vomit Blood, Heart Beat Irreg/Pounding, Pain/Pressure in jaw, Cramps in feet or legs, Lightheadedness, Pain/Pressure in shoulder, Diarrhea(Persistent), Memory Changes Suddenly, Questions/Concerns, Weight gain consecutive days, Dizziness/Fainting, Nausea/Vomiting, Shortness of Breath, Weight gain over 2 pounds If questions or concerns contact your physician Or seek help at emergency department. Activity Activity as Tolerated: Yes Activity Instructions: Avoid Stress to Incision Driving Instructions: No Driving/Refer to Dr. Neal Discharge Diet: No Restrictions Diet After 24 Hours: Clear Liquid if Nauseous If Any Problems/Questions/Issu: Contact Your Physician, Go to Emergency Room Skin/Wound Care Infection Signs and Symptoms: Increased Redness, Foul Odor of Wound, Increased Drainage, Skin Itchy or Has a Rash, Increased Swelling, Temperature Above 101 F Wound Care Comment: heating pad to shoulder or neck tonight for pain Bathing Instructions: Shower Stitches/Emeterio/Dermabond Dis: Dermabond Ice Pack: Ice On and Off Site MARIO PENA DO Nov 03, 2020 21:03
--- NOTE | 2020-11-03 21:14 | Anesthesia-General Post-Op ---
General Patient Condition Mental Status/LOC: Same as Preop Cardiovascular: Satisfactory Nausea/Vomiting: Absent Respiratory: Satisfactory Pain: Controlled Complications: Absent Post Op Complications Complications None Follow Up Care/Instructions Patient Instructions None needed. Anesthesia/Patient Condition Patient Condition Patient is doing well, no complaints, stable vital signs, no apparent adverse anesthesia problems. No complications reported per nursing. D/C home per [facility] [place] Criteria: Yes JOVAN HINDS CRNA Nov 03, 2020 21:14
[2020-11-03] MEDS ORDERED: ONDANSETRON 4 MG/2 ML (SDV) Z0FRAN IVP PRN (21:15)
[2020-11-03] MEDS ORDERED: HYDROmorphone 2 MG/ML VIAL (DILAUDID) IV ONE (21:15)
[2020-11-03] MEDS: CATHETER FLUSH 10 ML SYR IV SCH (22:22)
[2020-11-03] MEDS ORDERED: HYDROcodone/APAP 5 MG/325 MG (LORTAB) TAB PO PRN (22:30)
[2020-11-04 03:18] VITALS: BP 120/67
[2020-11-04] MEDS: CATHETER FLUSH 10 ML SYR IV SCH (06:18)
[2020-11-04 07:17] VITALS: BP 122/75
== END 2020-11-04 10:10 | disposition home or self-care (01) ==
LOC: EDUNIT# 16:22 → ER FS 16:24 → SDC 19:07 → 4TH 19:08
PROVIDERS: ADMIT Surgery; ATTEND Surgery
DX: K35.80 Unspecified acute appendicitis (principal); Z79.899 Other long term (current) drug therapy; Z80.1 Family history of malignant neoplasm of trachea, bronchus and lung; Z80.0 Family history of malignant neoplasm of digestive organs; Z83.3 Family history of diabetes mellitus
CPT/HCPCS: 36415; 74019; 74177; 80053; 81000; 83690; 84703; 85007; 85027; 86141; 88304

== ENCOUNTER → 2020-12-09 | Outpatient (CLI) | payer MEDICAID ==
[~2020-12-09] MED LIST changes: +ACHD5005 PO
--- NOTE | 2020-12-09 15:53 | Diagnostic Imaging Report ---
PROCEDURE: Pelvic comp/transvaginal sonogram. TECHNIQUE: Complete transabdominal and transvaginal pelvic ultrasound was performed. In addition, limited pelvic Doppler was performed. INDICATION: Excessive bleeding. Uterus measures 7.1 x 6.7 x 4.6 cm. Endometrium is 13 mm in thickness. There is a small endometrial cyst measuring 3 mm. No myometrial mass is identified. Right ovary measures 3.3 x 2.3 x 2.0 cm and the left ovary measures 6.2 x 6.7 x 5.2 cm. Left ovary does contain a cyst measuring 5.3 x 4.9 x 5.8 cm. There is blood flow involving both ovaries. No free fluid is identified. IMPRESSION: 1. Large left ovarian cyst. Follow-up in 6-8 weeks is recommended to confirm stability and/or clearing. No other significant abnormality is detected. Dictated by: Dictated on workstation # [id number]
== END ==
LOC: RAD FS 14:19
PROVIDERS: ATTEND Family Medicine
DX: N83.202 Unspecified ovarian cyst, left side (principal)
CPT/HCPCS: 76830; 76856

== ENCOUNTER → 2021-10-04 | Outpatient (CLI) | payer MEDICAID ==
--- NOTE | 2021-10-04 19:23 | Diagnostic Imaging Report ---
PROCEDURE: Pelvic comp/transvaginal sonogram. TECHNIQUE: Complete transabdominal and transvaginal pelvic ultrasound was performed. In addition, limited pelvic Doppler was performed. INDICATION: Left ovarian cyst. Correlation is made with prior ultrasound 12/09/2020. FINDINGS: The uterus is retroverted measuring 9.6 x 5.8 x 7.6 cm. Endometrium is 17 mm in thickness. No myometrial mass is detected. Right ovary measures 3.1 x 2.1 x 2.7 cm, and the left ovary measures 7.1 x 5.6 x 6.7 cm. The left ovary does contain a large simple-appearing cyst now measuring 6.3 x 5.1 x 6.3 cm. This compares with 5.3 x 4.9 x 5.8 cm on prior exam. Ovaries do show blood flow. There is a small amount of free fluid in the posterior cul-de-sac. IMPRESSION: Mild increase in size of large simple cyst in the left ovary when compared with exam from 12/09/2020. Dictated by: Dictated on workstation # [id number]
== END ==
LOC: RAD 12:30
PROVIDERS: ATTEND Family Medicine
DX: N83.202 Unspecified ovarian cyst, left side (principal)
CPT/HCPCS: 76830; 76856

== ENCOUNTER 2022-03-22 13:50 | Emergency (ER) | payer MEDICAID ==
[~2022-03-22] VITALS: Ht 177 cm; Wt 125.0 kg
[2022-03-22 14:01] VITALS: BP 136/78
--- NOTE | 2022-03-22 14:56 | ED Back Pain ---
General Chief Complaint: Back Problems Stated Complaint: LWR BACK PAIN Nursing Triage Note: Patient has been brought to ER by EMS with cc of lower left side back pain. Per the patient she was unloading the dryer last night when she pulled something in her lower back. She reports that last night she took ibuprofen and a muscle relaxer, at midnigt she took a hydrocone left over from a surgery. At 0600 this morning she tookd another muschle relaxer and a hydrocodone and she took another hydrocodone at 0900 this morning. She states that she was just unable to get out of bed. Her pain is minimal whe she is laying still but it is very hard to move. Source of Information: Patient Exam Limitations: No Limitations (JULIET MEJIA) History of Present Illness Date Seen by Provider: Mar 22, 2022 Time Seen by Provider: 14:30 Initial Comments This 41 year old female presents with left mid-lower back pain. Onset yesterday afternoon while the patient was removing laundry from an over-head stacked dryer. Patient states she felt an immediate sharp pain in her left lower back that dropped her to her knees. Patient remained hunched over on the floor for 20-30 minutes before she was able to get up. She states she was not alone when she was on the floor. Patient states she was able to ambulate to a chair and rajesh ntually to the couch and occasionally the restroom. Patient states the pain is sharp and stabbing with movement and consistently aching with rest. Patient states throughout the night she took two different types of muscle relaxers, 800mg of motrin, and two doses of hydrocodone from her previous appendectomy. Patient states the muscle relaxers were her friends'. Patient states she r eceived little relief from the agents she tried. Patient states this morning she reached out to her PCP, Dr. Corado, but was not able to get in contact with her. It was at this point that she discerned to call EMS. Patient's only associated symptom is nausea from the pain. Patient denies fever, chest pain, SOA, abdominal pain, V/D, dysuria, paresthesias, incontinence, or pain elsewhere. Location: T-Spine (lower thoracic spine) Timing/Duration: 12-24 Hours Severity: Severe Pain/Injury Location: Back (mid-lower back) Method of Injury: Other (reaching up and pulling out laundry) Modifying Factors: Improves With Immobilization; Worse With Movement; Improves With Pain Medication, Improves With Rest Associated Symptoms: denies symptoms (JULIET MEJIA) Allergies and Home Medications Allergies Coded Allergies: No Known Drug Allergies (Unverified , 04/03/16) Patient Home Medication List Home Medication List Reviewed: Yes (JULIET MEJIA) Cephalexin (Cephalexin) 500 Mg Tablet, 500 MG PO TID Prescribed by: GREG CANDELARIO on 04/06/19 1600 Cyclobenzaprine HCl (Cyclobenzaprine HCl) 10 Mg Tablet, 10 MG PO Q8H PRN for SPASMS Prescribed by: EMILY KC on 03/22/22 170 Hydrocodone Bit/Acetaminophen (HYDROcodone/APAP 5 MG/325 MG TAB) 1 Tab Tab, 1 TAB PO Q8H PRN for PAIN-MODERATE (5-7) Prescribed by: MARIO PENA on 11/03/20 210 Hydrocodone/Acetaminophen (Hydrocodone-Acetamin 5-325 mg) 5 Mg-325 Mg Tablet, 1 TAB PO Q4H PRN for PAIN-BREAKTHROUGH Prescribed by: EMILY KC on 03/22/22 170 Prednisone (Prednisone) 20 Mg Tab, 40 MG PO DAILY Prescribed by: EMILY KC on 03/22/22 170 Promethazine HCl (Promethazine Tablet) 25 Mg Tablet, 25 MG PO Q8H PRN for NAUSEA/VOMITING Prescribed by: GREG CANDELARIO on 04/06/19 1600 Review of Systems Constitutional: no symptoms reported EENTM: no symptoms reported Respiratory: no symptoms reported Cardiovascular: no symptoms reported Gastrointestinal: nausea Genitourinary: no symptoms reported Musculoskeletal: neck pain Skin: no symptoms reported Psychiatric/Neurological: No Symptoms Reported (JULIET MEJIA) All Other Systems Reviewed Negative Unless Noted: Yes (JULIET MEJIA) Past Wxxduuh-Eitgbs-Bggeov Hx Patient Social History Tobacco Use?: No Use of E-Cig and/or Vaping dev: No Substance use?: No Alcohol Use?: No (JULIET MEJIA) Immunizations Up To Date Tetanus Booster (TDap): Less than 5yrs (JULIET MJEIA) Seasonal Allergies Seasonal Allergies: No (JULIET MEJIA) Past Medical History Surgeries: No Respiratory: No Cardiac: No Neurological: No Reproductive Disorders: No Sexually Transmitted Disease: No HIV/AIDS: No Genitourinary: No Gastrointestinal: No Musculoskeletal: No Endocrine: No HEENT: No Cancer: No Psychosocial: No Integumentary: No Blood Disorders: No Adverse Reaction/Blood Tranf: No (JULIET MEJIA) Family Medical History Cancer, Diabetes (JULIET MEJIA) Physical Exam Vital Signs Vital Signs - First Documented 03/22/22 14:01 Temp 36.5 Pulse 96 Resp 16 B/P (MAP) 136/78 (97) Pulse Ox 100 O2 Delivery Room Air (EMILY KENNY MD) Vital Signs Capillary Refill : (JULIET MEJIA) Height, Weight, BMI Height: 5'10" Weight: 205lbs. oz. 92.062971pa; 39.00 BMI Method:Stated General Appearance: Mild Distress HEENT: PERRL/EOMI Cardiovascular: Regular Rate, Rhythm, No Murmur Respiratory: Lungs Clear, Normal Breath Sounds, No Accessory Muscle Use, No Respiratory Distress Gastrointestinal: Normal Bowel Sounds, Non Tender, Soft Back: Other (tenderness/significant pain of left paraspinal musculature in lumbar region with palpation) Neurologic/Psychiatric: Alert, Oriented x3 Skin: Warm/Dry Lymphatic: No Adenopathy (JULIET MEJIA) Progress/Results/Core Measures Results/Orders Lab Results Laboratory Tests Test 03/22/22 15:20 03/22/22 15:30 Range/Units Sodium Level 136 135-145 MMOL/L Potassium Level 3.7 3.6-5.0 MMOL/L Chloride Level 101 98-107 MMOL/L Carbon Dioxide Level 21 21-32 MMOL/L Anion Gap 14 5-14 MMOL/L Blood Urea Nitrogen 10 7-18 MG/DL Creatinine 0.62 0.60-1.30 MG/DL Estimat Glomerular Filtration Rate 114 BUN/Creatinine Ratio 16 Glucose Level 92 70-105 MG/DL Calcium Level 9.0 8.5-10.1 MG/DL Magnesium Level 1.9 1.6-2.4 MG/DL Serum Test, Qualitative NEGATIVE NEGATIVE (EMILY KENNY MD) My Orders Orders - EMILY KENNY MD Orphenadrine Inj (Ed Only) (Norflex Inje (03/22/22 15:15) Ketorolac Injection (Toradol Injection) (03/22/22 15:15) Oxycodone/Apap 5/325mg Tablet (Percocet (03/22/22 15:15) Ed Iv/Invasive Line Start (03/22/22 15:14) Basic Metabolic Panel (03/22/22 15:14) Hcg,Qualitative Serum (03/22/22 15:14) Magnesium (03/22/22 15:14) (EMILY KENNY MD) Medications Given in ED (EMILY KENNY MD) Vital Signs/I&O 03/22/22 14:01 Temp 36.5 Pulse 96 Resp 16 B/P (MAP) 136/78 (97) Pulse Ox 100 O2 Delivery Room Air (EMILY KENNY MD) Blood Pressure Mean: 97 Progress Progress Note : Progress Note Patient was interviewed and examined by me personally along with MS4. She was found to have point TTP in the left lumbar paraspinous muscles near the SI joint. Palpation appeared to trigger spasm. She was treated with IV toradol and Norflex along with an oral Percocet with excellent improvement. Electrolytes and test were normal. See discharge instructions for further discussion with pt. She denied any leg weakness, bowel or bladder contr ol problems, or groin numbness. (EMILY KENNY MD) Departure Impression Primary Impression: Low back pain Qualified Codes: M54.50 - Low back pain, unspecified Additional Impression: Muscle spasm of back Disposition: 01 HOME, SELF-CARE Condition: Improved Departure-Patient Inst. Decision time for Depature: 16:55 (EMILY KENNY MD) Referrals: SHAWNA CORADO MD (PCP) Primary Care Physician Patient Instructions: Low Back Pain in Adults Add. Discharge Instructions: Use ibuprofen up to 600 mg every 6 hours as needed for primary pain control. Add hydrocodone as prescribed for pain not controlled by ibuprofen. Use hydrocodone with caution as it may cause drowsiness. Do not drive, operate machinery, or make important decisions while on this medication. Hydrocodone may also cause constipation, so you may wish to use a stool softener while you use it. Gradually advance your level of activity as pain allows. Avoid excessive bending or heavy lifting until the pain has completely resolved. Core strengthening exercises and maintaining an ideal body weight can help reduce recurrence. If you are experiencing muscle tension or spasms associated with your pain, use the cyclobenzaprine as prescribed. Use of prednisone over the next few days should significantly reduce the inflammation. Take prednisone early in the day to avoid sleep disturbance and take with food or milk to avoid stomach upset. Return to the emergency room if you have worsening symptoms despite following these instructions. Follow-up with your primary care provider if you do not have complete resolution by early next week. True weakness in your legs, difficulty controlling bowel or bladder function, or numbness in the groin could indicate a spinal cord emergency. Please present to the emergency room immediately if you experience the symptoms. All discharge instructions reviewed with patient and/or family. Voiced understanding. Scripts Hydrocodone/Acetaminophen (Hydrocodone-Acetamin 5-325 mg) 5 Mg-325 Mg Tablet 1 TAB PO Q4H PRN for PAIN-BREAKTHROUGH, #10 TAB Prov: EMILY KENNY MD 03/22/22 Cyclobenzaprine HCl (Cyclobenzaprine HCl) 10 Mg Tablet 10 MG PO Q8H PRN for SPASMS, #10 TAB 0 Refills Prov: EMILY KENNY MD 03/22/22 Prednisone (Prednisone) 20 Mg Tab 40 MG PO DAILY, #8 TAB 0 Refills Prov: EMILY KENNY MD 03/22/22 MEDICAL STUDENT ATTESTATION: I have personally interviewed and examined this patient. I have reviewed documentation from Lisa Mejia, MS4. I agree with her assessments and history except where otherwise noted. EXAM: Gen: alert, oriented, mild distress HEENT: normal HEART: RRR, no murmur LUNGS: CTAB, normal effort ABD: soft, NT BACK: point TTP along the left paraspinous muscles near the SI joint NEURO: A and O, no focal deficits (EMILY KENNY MD) Copy Copies To 1: SHAWNA CORADO MD, MIKAELA Mar 22, 2022 14:56 EMILY KENNY MD Mar 22, 2022 17:00
[2022-03-22] MEDS ORDERED: oxyCODONE/APAP 5/325MG (PERCOCET 5) TABLET PO ONE (15:15)
[2022-03-22] MEDS ORDERED: KETOROLAC 30 MG/ML VIAL IVP ONE (15:15)
[2022-03-22] MEDS ORDERED: ORPHENADRINE 60 MG/2 ML (NORFLEX) AMP (ED ONLY) IV ONE (15:15)
[2022-03-22 15:50] LABS: CREATININE SERUM 0.62 MG/DL (0.60-1.30); MAGNESIUM 1.9 MG/DL (1.6-2.4); POTASSIUM 3.7 MMOL/L (3.6-5.0)
[2022-03-22] MEDS ORDERED: ACHD5005 PO (17:00)
[2022-03-22] MEDS ORDERED: CYCL10TA25 PO (17:00)
[2022-03-22] MEDS ORDERED: PRD20T PO (17:00)
== END 2022-03-22 17:05 | disposition home or self-care (01) ==
LOC: EDUNIT# 13:50 → ER FS 13:51
DX: M62.830 Muscle spasm of back (principal); Z28.310 Unvaccinated for COVID-19
CPT/HCPCS: 36415; 80048; 83735; 84703